=== PATIENT | female | born 1965 | race Two or more races ===

== ENCOUNTER 2016-12-09 13:41 | Emergency (ER) | payer OTHER ==
--- NOTE | ~2016-12-09 | CR282 ---
[facility] A Service of [facility] & [facility] RADIOLOGY TEXT RESULTS PATIENT: FLAVIO ROWE LOCATION: CFTX : 67 UNIT #: [id number] AGE: [address]: Ita Magana APRN SEX: F ORDER DR: [id number] [facility] [address] [place], [place] [address] [id number] E MR#: [id number] Acc #: [id number] NAME: FLAVIO ROWE : 1965 SEX: F STUDY DATE/TIME: 12/09/2016 14:17 UNIT: TX ROOM: STUDY DESCRIPTION: CR Wrist Min 3 View Rt Attending Physician: Ita Magana A.P.R.N. Ordering Physician: Ed Doctor [id number] [facility] Primary Care Physician: Tavares Cheng M.D. MEDICAL IMAGING REPORT This report is preliminary unless electronic signature is present EXAM Right wrist HISTORY Patient fell today with right wrist pain. FINDINGS Three views of the right wrist demonstrates a mildly comminuted intraarticular fracture of the distal radius with apparent intraarticular extension at the lunate fossa. No significant stepoff at the radial articular surface. There is mild dorsal impaction and minimal dorsal angulation. The ulnar styloid appears intact. Carpal alignment appears maintained. No evidence of carpal fracture. Mild soft tissue swelling. IMPRESSION Mildly comminuted transverse fracture of the distal radius with intraarticular extension at the lunate fossa. Minimal dorsal impaction and dorsal angulation. No associated ulnar styloid fracture. Dictated by... Delores Baeza M.D. THIS IS AN ELECTRONICALLY VERIFIED REPORT Delores Baeza M.D. at 12/09/2016 9:14 PM KATHERINE/donna TD: 12/09/2016 15:00 JOB #: [id number] MEDICAL IMAGING REPORT Page 1 of 1 COPY
== END 2016-12-09 16:10 | disposition home or self-care (01) ==
LOC: CED 13:41 → CFTX 13:41
DX: S52.571A Other intraarticular fracture of lower end of right radius, initial encounter for closed fracture (principal); W18.30XA Fall on same level, unspecified, initial encounter; Y92.009 Unspecified place in unspecified non-institutional (private) residence as the place of occurrence of the external cause
CPT/HCPCS: 29125; 73110; 99283